=== PATIENT | male | born 1970 | race Caucasian/White ===

== ENCOUNTER 2016-07-25 14:36 | Inpatient (IN) | payer OTHER ==
[~2016-07-25] VITALS: Ht 180.3 cm; Wt 136.1 kg
[2016-07-25] MEDS ORDERED: MOMETASONE FURO45 GM TOP (14:51)
[2016-07-25] MEDS ORDERED: ELOCON30 ML TOP (14:52)
--- NOTE | 2016-07-25 14:52 | ED GENERAL ADULT ---
History of Present Illness General Chief Complaint: Eye Problems Stated Complaint: BIBA, BLURRY VISION Source: patient Exam Limitations: no limitations Vital Signs & Intake/Output Vital Signs & Intake/Output Vital Signs Date Time Temp Pulse Resp B/P Pulse O2 O2 Flow FiO2 Ox Delivery Rate 07/26 0108 99.3 108 18 190/100 96 Room Air 07/26 0000 98.4 90 16 190/100 07/25 2307 108 182/102 07/25 2303 179/101 07/25 2302 98.8 108 20 182/102 96 Room Air 07/25 2143 117 18 190/104 94 Room Air 07/25 1956 98.7 104 18 173/106 95 Room Air 07/25 1620 182/101 07/25 1619 101 20 182/101 95 Room Air 07/25 1532 124 20 210/100 96 Room Air 07/25 1531 210/100 07/25 1442 97.5 124 18 196/110 99 Room Air ED Intake and Output 07/26 0000 07/25 1200 Intake Total 240 Output Total Balance 240 Intake, Oral 240 Allergies Coded Allergies: No Known Allergies (07/25/16) Reconcile Medications Mometasone Furoate 0.1 % CREAM..G. 1 NAHID TOP BID PSORIASIS (Reported) apply to affected area(s) Mometasone Furoate ([place]) 0.1 % SOLUTION 1 NAHID TOP PRN PSORIASIS - SCALP ( Reported) Triage Note: C/O SUDDEN ONSET BLURRED VISION. PT STATES "I FELT DRUNK AND UNSTEADY ALL OF THE SUDDEN" PT'S RIGHT EYE APPEARS TO BE PROTRUDING. STATES COWORKER NOTICED IT AFTER LUNCH. Triage Nurses Notes Reviewed? yes Onset: Abrupt Duration: hour(s): Timing: recent history HPI: 07/25/16 3 PM 45-year-old male presents to the emergency department for blurry vision. According to the patient is in his usual state of health until this afternoon when he felt: "Out of it". He felt lightheaded and dizzy. That approximately one hour ago he developed a sudden onset of blurred vision. He is currently having double vision. The onset of the symptoms were abrupt, the duration was approximately 2-3 hours ago, the severity is significant as his symptoms required him to come to the emergency department for care. He denies headache, nausea, vomiting or other complaints. On physical exam he is awake and alert and oriented 3. He is hypertensive. He is fairly obese. On physical exam his right has mild proptosis. There is obvious anisocoria with the right pupil being sluggishly reactive. He also has restricted range of motion to the right eye both medial gaze. Funduscopic exam is normal. He has not used any drop in the right eye. (HERMELINDO HODGE DO) Past History Travel History Traveled to [place] past 21 day No Medical History Any Pertinent Medical History? see below for history Cardiovascular: hypertension Endocrine: PSORIASIS Surgical History Surgical History: non-contributory Psychosocial History What is your primary language Arabic Tobacco Use: Quit >30 days ago ETOH Use: occasional use Family History Hx Contributory? No (HERMELINDO HODGE DO) Review of Systems Review of Systems Constitutional: Denies: fever. EENTM: Reports: double vision, visual changes. Respiratory: Denies: short of breath. Cardiovascular: Denies: chest pain. GI: Denies: abdominal pain. Genitourinary: Reports: no symptoms. Musculoskeletal: Reports: no symptoms. Skin: Reports: rash (psoriasis). Neurological/Psychological: Denies: headache. Hematologic/Endocrine: Denies: bruising, bleeding. (HERMELINDO HODGE DO) Physical Exam Physical Exam General Appearance: well developed/nourished, alert, awake, anxious, moderate distress Head: atraumatic Ears, Nose, Throat: normal pharynx Neck: normal inspection, supple, full range of motion Respiratory: normal breath sounds, chest non-tender, no respiratory distress Cardiovascular: regular rate/rhythm Peripheral Pulses: 4+ radial (R), 4+ radial (L) Gastrointestinal: non-tender Back: normal range of motion Extremities: normal inspection, normal range of motion, no edema Neurologic/Psych: awake, alert, oriented x 3 Skin: intact, normal color, warm/dry Comments: The patient was placed on a monitor. IV Lopressor was given. He has a right third nerve palsy, and extreme hypertension. I spoke with Dr. Mckeon, and with the on-call neurologist Dr. Mcnulty, MRI of the head and MRA of the brain was obtained, result is pending. The patient was signed out to Dr. Real at 7 PM. He is for telemetry admission. Assuming the MRI MRA are unremarkable. Ophthalmology may see the patient as an outpatient. Core Measures ACS in differential dx? No CVA/TIA Diagnosis: No Severe Sepsis Present: No Septic Shock Present: No (HERMELINDO HODGE DO) Progress Differential Diagnoses I considered the following diagnoses in my evaluation of the patient: [TIA, third nerve palsy, carotid dissection, cerebral aneurysm, diabetic cranial nerve neuropathy,] Plan of Care: Orders Procedure Date/time Status Nothing by Mouth 07/26 B Active EKG 07/26 0330 Active TROPONIN LEVEL 07/26 0300 Active Vital Signs 07/26 010 Active Teach/Educate 07/26 103 Active Nutritional Intake, Monitor 07/26 103 Active Isolation 07/26 103 Active Intake & Output 07/26 103 Active Patient Care Conference 07/26 103 Active Activity/Ambulation 07/26 103 Active Heart Healthy Diet 07/25 D Complete TROPONIN LEVEL 07/25 213 Complete EKG 07/25 213 Active TRC EVALUATION (GEN) 07/25 2105 Active OXYGEN SETUP (GEN) 07/25 2105 Active Pathway - chart 07/25 2105 Active House Staff 07/25 2105 Active Patient Data 07/25 2105 Active Code Status 07/25 2105 Active Patient Data 07/25 205 Active Saline Lock 07/25 2006 Active Misc Message 07/25 2006 Active ED Holding Orders 07/25 2006 Active Vital Signs 07/25 2006 Complete Code Status 07/25 2006 Complete Admit to inpatient 07/25 1918 Active THYROID STIMULATING HORMONE 07/25 1505 Complete LIPID PANEL 07/25 1505 Complete GLYCOSYLATED HGB 07/25 1505 Active FREE T4 07/25 1505 Complete TROPONIN LEVEL 07/25 1455 Complete PROTHROMBIN TIME 07/25 1455 Complete COMPREHENSIVE METABOLIC PANEL 07/25 1455 Complete CBC WITHOUT DIFFERENTIAL 07/25 1455 Complete EKG 07/25 1455 Active TYPE & SCREEN (NOT X-MATCH) 07/25 1455 Complete [id number] DOPPLER 07/25 UNK Active Lab Add-on Test 07/25 UNK Active VTE Mechanical Prophylaxis 07/25 UNK Active Vital Signs 07/25 UNK Active MISTAKE 07/25 UNK Active Telemetry/Special Education Resource Room Teacher 07/25 UNK Active Nursing Misc 07/25 UNK Active Intake & Output 07/25 UNK Active Hemoccult 07/25 UNK Active CIWA 07/25 UNK Active ECHOCARDIOGRAM 07/25 UNK Active Laboratory Tests 07/25/16 2148: Troponin I < 0.01 07/25/16 1505: Hemoglobin A1c Pending 07/25/16 1505: Anion Gap 16, Estimated GFR > 60, BUN/Creatinine Ratio 14.3, Glucose 174 H, Calcium 9.6, Total Bilirubin 0.6, AST 65 H, ALT 140 H, Alkaline Phosphatase 66 , Troponin I < 0.01, Total Protein 7.7, Albumin 4.3, Globulin 3.4, Albumin/ Globulin Ratio 1.3, Triglycerides 89, Cholesterol 196, LDL Cholesterol, Calc 140 H, HDL Cholesterol 39 L, Cholesterol/HDL Ratio 5 H, TSH 1.130, Free T4 1.41, PT 14.2 H, INR 1.36 H, CBC w Diff NO MAN DIFF REQ, RBC 4.92, MCV 92.9, MCH 31.0, RDW 13.3, MPV 8.3, Gran % 85.1 H, Lymphocytes % 10.3 L, Monocytes % 4.4, Eosinophils % 0.1, Basophils % 0.1, Absolute Granulocytes 8.2 H, Absolute Lymphocytes 1.0 L, Absolute Monocytes 0.4, Absolute Eosinophils 0, Absolute Basophils 0, PUBS MCHC 33.4 Initial ED EKG: SINUS TACHYCARDIA (HERMELINDO HODGE DO) Departure Departure Disposition: STILL A PATIENT Condition: Stable Clinical Impression Primary Impression: Hypertensive urgency Secondary Impressions: 3Rd nerve palsy, partial Departure Forms: Customer Survey General Discharge Information Admission Note Spoke With: HARSHAD GILLIAM,[facility] Documentation of Exam: Documentation of any treatments & extenuating circumstances including Concerns Regarding Discharge (functional status, medication knowledge or non-compliance, living conditions, etc.) that warrant an admission rather than observation: [The patient needs telemetry monitoring, IV antihypertensive, neurology consultation] (HERMELINDO HODGE DO) Departure Comments pt admitted prior to sign out to me (dr. real) (SANTIAGO GILLIAM,RACHELL Jones) Critical Care Note Critical Care Note Critical Care Time: 30-74 min (HERMELINDO HODGE DO)
--- NOTE | 2016-07-25 15:03 | NUR ---
PT REPORTS BLURRY VISION FROM RIGHT EYE AND SLIGHTLY CLEARER VISION ON LEFT EYE. PT DESCRIBES "ITS LIKE I HAVE A SPLIT SCREEN OF WHAT I'M LOOKING AT". PT STATES NOT CURRENTLY TREATED FOR HTN. IV PLACED, PT WAITING FOR CT HEAD
[2016-07-25 15:19] LABS: ABSOLUTE BASOPHIL COUNT 0 /CUMM (0.0-0.2); ABSOLUTE EOSINOPHIL COUNT 0 /CUMM (0.0-0.7); ABSOLUTE GRANULOCYTE CT 8.2 /CUMM (1.4-6.5); ABSOLUTE MONOCYTE COUNT 0.4 /CUMM (0.10-0.60); BASOPHIL % 0.1 % (0.0-2.0); EOSINOPHIL % 0.1 % (0-5); HEMATOCRIT 45.6 % (42-52); MEAN CORPUSCULAR HGB CONC 33.4 G/DL (33.0-37.0); MEAN CORPUSCULAR VOLUME 92.9 FL (80.0-94.0); MEAN PLATELET VOLUME 8.3 FL (7.4-10.4); PLATELET COUNT 280 /CUMM (130-400); RBC DISTRIBUTION WIDTH 13.3 % (11.5-14.5); RED BLOOD CELL CT 4.92 /CUMM (4.70-6.10); WHITE BLOOD CELL COUNT 9.6 /CUMM (4.8-10.8)
[2016-07-25 15:22] LABS: PT 14.2 SEC (9.4-12.5)
--- NOTE | 2016-07-25 15:30 | NUR ---
PINK TOP NEEDS TO BE REDRAWN PER LAB
--- NOTE | 2016-07-25 15:33 | NUR ---
ASSUMED CARE OF THIS PATIENT REPORT RECEIVED FROM ROJAS FISHER MANUAL B/P 210/100, HR 124. MEDICATED WITH LOPRESSOR PER ORDERS [facility]E AT BEDSIDE FOR REDRAW OF LAB SPECIMEN WILL CONTINUE TO MONITOR.
[2016-07-25 15:40] LABS: GRANULOCYTE % 85.1 % (42.2-75.2)
--- NOTE | 2016-07-25 17:30 | NUR ---
PT TO/FROM MRI WITH RN ON CHILD DEVELOPMENT ASSISTANT NO CHANGE IN PATIENT STATUS REQUESTING WATER, OK TO GIVE SAME PER DR HODGE
--- NOTE | 2016-07-25 17:46 | MRI REPORT ---
EXAMINATION: MR BRAIN WITHOUT CONTRAST MR ANGIOGRAPHY HEAD WITHOUT CONTRAST CLINICAL INFORMATION: Reported 3rd nerve palsy. COMPARISON: None. TECHNIQUE: Multiplanar, multisequence imaging of the brain was obtained without intravenous administration of contrast. 3-D [id number] MR angiography is performed. Multiple 3-D reformatted images are processed on the technologist workstation. FINDINGS: No diffusion abnormalities are identified to suggest an acute or subacute infarct. The ventricles are normal in size. No mass effect or midline shift is seen. No brain parenchymal signal abnormality is noted. No extra-axial fluid collections are seen. The cerebellum is normal. No pathologic magnetic susceptibility artifact is identified on the gradient refocused acquisition. The craniovertebral junction, marrow signal, and midline structures are normal. The major intracranial flow voids at the level of the [place] are preserved. The dural venous sinus flow voids are maintained. The mastoid air cells and paranasal sinuses are fairly well aerated. There is a significant leftward nasal septal deviation with osseous spurring distorting the left inferior turbinate. A linear low signal focus in the midline ventral pontomedullary junction of the brainstem may be due to a small developmental venous anomaly. There is minimal T2 prolongation surrounding this low signal focus, also demonstrating focal susceptibility artifact. MRA of the [place] demonstrates a normal caliber to the anterior and posterior circulation vasculature. No stenoses or occlusions are seen. No vascular malformation or aneurysms are identified. IMPRESSION: No acute intracranial process. 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 Normal MRA of the head.
--- NOTE | 2016-07-25 19:00 | NUR ---
DR HODGE AT BEDSIDE
--- NOTE | 2016-07-25 19:30 | NUR ---
PLAN IS FOR PATIENT TO BE ADMITTED TO HOSPITAL, AWAITING ORDERS.
--- NOTE | 2016-07-25 21:11 | History & Physical ---
IZABELLA GILLIAM,MARGARET 07/25/169: General Information and HPI MD Statement: I have seen and personally examined TRISHA ROGERS and documented this H&P. The patient is a 45 year old M who presented with a patient stated chief complaint of double vision. Source of Information: patient Exam Limitations: no limitations History of Present Illness: This is a 45-year-old obese male with a 10 year history of hypertension but not on medication and not following with any PCP due to patient's choice, moderate psoriasis, presents to [facility] ED with complaints of sudden onset of double vision. Patient states that today around 1 PM while sitting at work working on his computer he suddenly tarted to experience double vision. Patient reports that his coworkers noticed that his eyes looked "abnormal". Patient reports that his double vision episode was persistent and did not resolve and was encouraged to come to the ED by his coworkers. At the ED patient was found to have elevated BP with systolic readings up to 210 was also tachycardic. Patient received metoprolol 5 mg IV bolus. Patient does deny any loss of vision, recent eye infection, recent eye trauma, any other focal neurological deficit, chest pain, palpitation, nausea, vomiting, or seizure activity. Regarding social history, patient admits to smoking marijuana almost on a daily basis Allergies/Medications Allergies: Coded Allergies: No Known Allergies (07/25/16) Past History Travel History Traveled to [place] past 21 day No Medical History Endocrine: PSORIASIS Surgical History Surgical History: none Past Family/Social History Psychosocial History ETOH Use: occasional use Review of Systems Review of Systems Constitutional: Denies: chills, diaphoresis, weakness. EENTM: Reports: double vision. Cardiovascular: Denies: chest pain, edema, orthopena, palpitations. Respiratory: Denies: cough, hemoptysis, orthopnea, short of breath. GI: Denies: bloating, diarrhea, distention. Genitourinary: Denies: dysuria, frequency, hematuria. Musculoskeletal: Denies: gout, joint pain, joint swelling, muscle pain. Skin: Reports: rash. Neurological/Psychological: Denies: depressed, numbness, paresthesia. Hematologic/Endocrine: Reports: no symptoms. Immunologic/Allergic: Reports: no symptoms. Exam & Diagnostic Data Last 24 Hrs of Vital Signs/I&O Vital Signs Date Time Temp Pulse Resp B/P Pulse O2 O2 Flow FiO2 Ox Delivery Rate 07/26 0400 98.6 90 20 158/98 07/26 0400 88 158/98 07/26 0310 90 184/100 07/26 0300 90 184/100 07/26 0108 99.3 108 18 190/100 96 Room Air 07/26 0000 98.4 90 16 190/100 07/25 2307 108 182/102 07/25 2303 179/101 07/25 2302 98.8 108 20 182/102 96 Room Air 07/25 2143 117 18 190/104 94 Room Air 07/25 1956 98.7 104 18 173/106 95 Room Air Intake & Output 07/26 0800 07/26 0000 Intake Total 240 240 Output Total Balance 240 240 Intake, Oral 240 240 Patient 136.078 kg Weight Physical Exam General Appearance Alert, Oriented X3, Cooperative Skin psoritic rash noted on elbows and arms bilaterally HEENT Atraumatic, Mucous Membr. moist/pink, upward gaze and abduction of right eye is compromised, patient having a done in RIGHT eye finding. Mild proptosis noted so on the right eye. Left eye unremarkable for any abnormality, funduscopic exam unremarkable for any acute pathology Neck Supple, No JVD, +2 Carotid Pulse wo Bruit Lymphatic Cervical nl Cardiovascular Regular Rate, Normal S1, Normal S2, No Murmurs Lungs Clear to Auscultation, Normal Air Movement Abdomen Normal Bowel Sounds, Soft, No Tenderness, No Hepatospenomegaly Neurological Normal Gait, Normal Speech, Strength at 5/5 X4 Ext, Normal Tone, Sensation Intact, Cranial Nerves 3-12 NL, Reflexes 2+ Extremities No Clubbing, No Cyanosis, No Edema, Normal Pulses, No Tenderness/ Swelling Last 24 Hrs of Labs/Michael: Laboratory Tests 07/26/16 0620: Total Bilirubin 0.7, Direct Bilirubin 0.4, AST 52, ALT 122 H, Alkaline Phosphatase 52, Total Protein 6.5, Albumin 3.6 07/26/16 0310: Troponin I < 0.01 07/25/162147: Troponin I < 0.01 Assessment/Plan Assessment: This a 45-year-old obese male with a history of untreated hypertension and not being followed by any PCP presents with complaints of blurred vision in the setting of elevated blood pressure. Patient presentation of blurred vision with physical findings that are consistent with third nerve palsy which is normally caused by either congenital versus acquired. Since this is new onset, possible etiology for patient's acquired nerve palsy most likely is from his uncontrolled hypertension as he presented with elevated BP. Brainstem CVA is always a concern in a patient with elevated BP and presenting with vision changes, however MRA was unremarkable for any stroke findings. Other possible etiologies include autoimmune (he does have a history of moderate psoriasis at increased risk of having other autoimmune disease), considering patient's obesity, diabetes etiology must be excluded even though patient does not have any symptoms such as polyuria or polydipsia. Elevated BP on presentation is secondary to untreated hypertension which patient has had for a long time.. Initially, The was a concern for alcohol withdrawal as a possible cause for elevated blood pressure due to patient's admission of occasional binge drink. However, patient did clarify that his last drink was about 6-7 days ago, therefore , withdrawal most likely is not the cause, Patient lifestyle of not having a healthy diet and decreased exercise, couple with social history of smoking marijuana on almost daily basis , obviously precipitates and increases risk of high blood pressure. The fact that his elevated blood pressure with BP systolic readings of 200 and possible organ damage (third nerve palsy) makes these presentation a hypertensive emergency and will need aggressive BP lowering. Problems #Hypertensive emergency #Third nerve palsy #Transaminitis Plan * lunchroom monitor * Rule out ACS * Echocardiogram * Labetalol 100 mg twice a day; increase as needed to control blood pressure; goal is to have diastolic blood pressure<110 within 2-6 hours. * Eyepatch for the right eye * Neurology consult * Cardiology consult * CIWA protocol * Lifestyle modification counseling * Will trend LFTs regarding transaminitis in my consider right upper quadrant ultrasound if elevated As Ranked By This Provider Problem List: 1. 3Rd nerve palsy, partial Core Measures/Miscellaneous Acute Coronary Syndrome ACS Diagnosis: No Cerebrovascular Accident CVA/TIA Diagnosis: No Congestive Heart Failure CHF Diagnosis: No Venous Thromboembolism VTE Risk Factors: Acute medical illness VTE Prophylaxis Ordered Inpt: Pharm- Lovenox No Mech VTE prophylaxis d/t: No contraindications No VTE Pharm Prophylaxis d/t: No contraindications VTE Diagnosis: No VTE Type: NONE VTE Confirmed by (Test): NONE Severe Sepsis Severe Sepsis Present: No Septic Shock Septic Shock Present: No Miscellaneous Documentation Attending Case Discussed With: ELENA PATRICIA [place] Primary Care Physician: PATIENT HAS NO PRIMARY CARE DR Patient sees these Specialists none Level of Patient Care: Telemetry Consults Needed: Consulting Specialty: Neurology GE VUONG 07/26/16 0258: General Information and HPI Allergies/Medications Home Med list Labetalol HCl 200 MG TABLET 1 TAB PO BID HIGH BLOOD PRESSURE Lisinopril (Prinivil) 10 MG TABLET 1 TAB PO DAILY HIGH BLOOD PRESSURE Mometasone Furoate 0.1 % CREAM..G. 1 NAHID TOP BID PSORIASIS (Reported) apply to affected area(s) Mometasone Furoate (Elocon) 0.1 % SOLUTION 1 NAHID TOP PRN PSORIASIS - SCALP ( Reported) Resident Review Statement Resident Statement: examined this patient, discussed with quality intern, agreed with quality intern, discussed with family, reviewed EMR data (avail), reviewed images Other Findings: This is a 45-year-old gentleman with past medical history significant for psoriasis, hypertension which was diagnosed 10 years ago, took antihypertensives (unsure of the name) for 6 months and stopped for no apparent reason presented to the hospital with chief complaint of double vision. According to the patient, around 1 PM when he was at work he noticed that his seeing everything double. His coworkers told him that his eyes are looking unusual. Patient mentioned that at that time, his head felt heavy, but he did not have any specific headache. Denies droopy eyelids, nausea, vomiting, dizziness, lightheadedness, loss of consciousness, shortness of breath, chest pain, palpitation, abdominal pain, urinary symptoms. The patient denies smoking cigarettes, reports drinking large amounts of alcohol at least 2 times a week(unsure of exactly what and how much), smokes marijuana at least once a day, last time yesterday. Denies any other illicit drug use. Patient does not have a PCP visits urgent care as needed. He has never addressed his blood pressure since 10 years ago. Upon admission to the hospital he was found to be hypertensive to 210/100 which improved to 182/101 after 5 mg IV metoprolol. He was also tachycardic to 124. Vital signs otherwise stable. Pertinent physical exam at the time of admission: Obese, NAD, AAO 3, head atraumatic normocephalic, funduscopy normal,Paralysis of adduction, elevation in the right eye. Pupil is dilated bilaterally however reactive to light and equal. No nystagmus noted in the left eye. Cranial nerves otherwise intact. [id number] intact. Normal reflexes. Strength 5/54. Normal pharynx, neck supple, no JVD, no LAD, no thyromegaly, cardiovascular: Tachycardic, no murmur. Lungs: CTA BL. Abdomen: Normal bowel sounds, Nontender, nondistended, no organomegaly. No lower extremity edema. Pulses normal and symmetrical. The patient passed bedside swallow evaluation. Pertinent lab on admission: CBC unremarkable, AST 65, AST 140, LDL 140, HDL 39, cholesterol 196 MRI head/neck MRA:No acute intracranial process. 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 Normal MRA of the head. Problem list/plan: #3rd nerve palsy;Rt: * Isolated * Pupil sparing(normal internal function) * No intracranial aneurysm noted in MRI; even the aneurysm less likely the cause in pupil sparing complete isolated third nerve palsy. * Patient is hypertensive; has long-standing history of most likely uncontrolled hypertension, for has vascular risk; MRI/MRA above rule out any pathology in cavernous sinus, posterior fossa and meninges. * Provide patch for the affected eye * obese/elevated blood glucose: Check hemoglobin A1c * Neurology and ophthalmology were consulted in the ED. * Consider adding ESR/CRP and workup of giant cell vasculitis. * If third nerve palsy persists, consider lumbar puncture. #Hypertensive urgency: * lunchroom monitor * Rule out ACS * Echocardiogram * Labetalol 100 mg twice a day; increase as needed to control blood pressure; goal is to have diastolic blood pressure<110 within 2-6 hours. 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 * Last episode of excessive drinking July 20, 2016 * Denies history of alcohol withdrawal or hospital admission * Counseled regarding excessive drinking and marijuana use * CIWA scale * Monitor closely * Social consult * Consider Abdominal US * U tox #DVT prophylaxis at all times #Patient is full code HARSHAD GILLIAM, [facility] 07/26/16 0323: Attending MD Review Statement Attending Statement Attending MD Statement: examined this patient, discuss w/resident/PA/TECHNOLOGY COORDINATOR, agreed w/resident/PA/TECHNOLOGY COORDINATOR, discussed with family Attending Assessment/Plan: 45 yo morbidly obese M with h/o untreated HTN (diagnosed 10 yrs ago, stopped meds), psoriasis, and has not seen a physician since, is here for c/o sudden onset double vision and inability to focus, that started around 2 pm while he was at work. His colleagues noticed his eyes looked unusual and sent him to the ER. Denies smoking, consumes alcohol and smokes marijuana. Vitals: tachycardic, 110's, BP 210/100 --> 184/100, sats 96% RA. Exam: Bilateral pupils are mid-dilated and equally RTL. Right eye mild ptosis (very difficult to appreciate), restricted upward gaze (superior rectus) and adduction (medial rectus). Diplopia corrects on right lateral gaze. Horizontal nystagmus +. Normal fundoscopy. Otherwise nonfocal neuro exam. Labs: glucose 174, AST 65, ALT 140, trop neg, EKG: Sinus tachycardia. Head MRI/MRA: no aneurysm or malformation, small developmental venous anomaly midline lower brainstem at pontomedullary junction. 1. Hypertensive crisis with pupil sparing partial right third nerve palsy. The 3rd nerve palsy appears to be ischemic etiology (hypertension/ ?undiagnosed diabetes), no e/o aneurysm (non pupil sparing mostly). Tele admit, neurochecks, check TSH, free T4, lipid panel, HbA1c. Check ESR, CRP, UA and urine tox screen. Provide patch to the right eye. Neuro consult in AM and outpatient Ophthal consult (Dr. Mckeon was called from ER). Treat the underlying process and watch for resolution of palsy. For HTN, gradual reduction to about SBP ~ 180's overnight, initiate Labetalol 100 BID and uptitrate based on BP. Can given PRN IV if needed. Serial EKG and troponin, Echo, Cardio consult. Counseled about alcohol and marijuana use. Weight loss, salt restriction, exercise to be reinforced. 2. Transaminitis in the setting of alcohol use. Trend LFTs, consider RUQ ultrasound. Monitor CIWA, no need for ativan at this point. DVT ppx Lovenox. Full code.
--- NOTE | 2016-07-25 22:09 | NUR ---
PT HAS BED ASSINGMENT 172
--- NOTE | 2016-07-25 22:43 | NUR ---
REPORT ROJAS BARCENAS
--- NOTE | 2016-07-25 23:03 | NUR ---
PT MEDICATED WITH PO LABETALOL PER ORDERS SPOKE W/HOUSE STAFF RONIT SAINI PAGER #[phone] REGARDING PT B/P & TELE NURSE CONCERNS. ADVISED BY MD VUONG TO ADMINISTER THE PO LABETALOL ORDERED AND IT WOULD BE OK TO SEND PATIENT UPSTAIRS, ALSO ADVISED THAT CURRENT GOAL B/P WAS 170'S SYSTOLIC. B/P CHECKED AT THIS TIME: AUTOMATIC CUFF R ARM WAS 179/101 AND MANUAL CUFF L ARM WAS 182/102. ROJAS BARCENAS NOTIFIED OF SAME.
[2016-07-26] VITALS (8 sets, daily range): BP systolic 158–190; BP diastolic 90–110
--- NOTE | 2016-07-26 03:29 | Admission Certification ---
Admission Certification Certification Statement - As attending physician, I certify that at the time of - admission, based on clinical presentation, severity of - symptoms, need for further diagnostic testing and - therapeutic interventions, and risk of adverse outcomes - without in-hospital treatment, in my clinical assessment, - this patient requires an acute hospital stay for a minimum - of two nights or longer. I have also considered psychsocial - factors such as support system, advanced age, financial - issues, cognitive issues, and failed out-patient treatments, - past re-admission history, safety of patient, and lack of - compliance as applicable. Specific rationale supporting this admission is: Hypertensive crisis with pupil sparing partial right third nerve palsy.
--- NOTE | 2016-07-26 10:57 | Cons- Cardiology ---
General Information and HPI Consulting Request Date of Consult: 07/26/16 Requested By: HARSHAD GILLIAM,ANDREW Reason for Consult: Uncontrolled hypertension Source of Information: patient Exam Limitations: no limitations History of Present Illness: The patient is a 45-year-old man was a history of hypertension in the past. He states he was on blood pressure medications about 8 years ago but stopped them because of side effects. He does not have a regular physician and has not been going for regular checkups and does not know what his blood pressure has been doing. Yesterday he developed double vision. He came to the emergency room was found to be severely hypertensive with blood pressure in the 200/110 range. His EKG was unremarkable and his enzymes were negative but he was admitted to telemetry. He was started on labetalol. His blood pressure still elevated today in the 170/100 range. There have been no arrhythmias. He denies any cardiac complaints including chest pain, shortness of breath, palpitations, syncope. Allergies/Medications Allergies: Coded Allergies: No Known Allergies (07/25/16) Home Med List: Mometasone Furoate 0.1 % CREAM..G. 1 NAHID TOP BID PSORIASIS (Reported) apply to affected area(s) Mometasone Furoate (Elocon) 0.1 % SOLUTION 1 NAHID TOP PRN PSORIASIS - SCALP ( Reported) Review of Systems Review of Systems: His only complaint is the present illness of blurry vision and double vision Past History Travel History Traveled to [place] past 21 day No Medical History Blood Transfusion Hx: No Neurological: NONE EENT: NONE Cardiovascular: hypertension Respiratory: NONE Gastrointestinal: NONE Hepatic: NONE Renal: NONE Musculoskeletal: NONE Psychiatric: NONE Endocrine: PSORIASIS Blood Disorders: NONE Cancer(s): NONE [employer]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 Home Services at Home: None Smoking Status: Former Smoker ETOH Use: occasional use Exam & Diagnostic Data Vital Signs and I&O Vital Signs Date Time Temp Pulse Resp B/P Pulse O2 O2 Flow FiO2 Ox Delivery Rate 07/26 1022 100 170/110 07/26 0800 98.0 81 20 170/100 95 Room Air 07/26 0400 98.6 90 20 158/98 07/26 0400 88 158/98 07/26 0310 90 184/100 07/26 0300 90 184/100 07/26 0108 99.3 108 18 190/100 96 Room Air 07/26 0000 98.4 90 16 190/100 07/25 2307 108 182/102 07/25 2303 179/101 07/25 2302 98.8 108 20 182/102 96 Room Air 07/25 2143 117 18 190/104 94 Room Air 07/25 1956 98.7 104 18 173/106 95 Room Air 07/25 1620 182/101 07/25 1619 101 20 182/101 95 Room Air 07/25 1532 124 20 210/100 96 Room Air 07/25 1531 210/100 07/25 1442 97.5 124 18 196/110 99 Room Air Intake & Output 07/26 0807/26 0000 07/25 1600 07/25 0000 Intake Total 240 240 Output Total Balance 240 240 Intake, Oral 240 240 Patient 300 lb Weight Physical Exam: He is obese middle-age male in no acute distress with eye patch on right eye HEENT exam is normal Neck veins not distended Carotids are normal Chest is clear Cardiac exam reveals regular rhythm and no murmurs Abdomen is benign Remedies good pulses no edema Labs/Michael Results: Laboratory Tests 07/26 07/26 07/25 07/25 0620 0310 2148 1505 Chemistry Hemoglobin A1c Pending Total Bilirubin (0.2 - 1.3 mg/dL) 0.7 Direct Bilirubin (< 0.4 mg/dL) 0.4 AST (17 - 59 U/L) 52 ALT (21 - 72 U/L) 122 H Alkaline Phosphatase (< 127 U/L) 52 Troponin I (<0.11 ng/ml) < 0.01 < 0.01 Total Protein (6.3 - 8.2 g/dL) 6.5 Albumin (3.5 - 5.0 g/dL) 3.6 07/25 1505 Chemistry Sodium (137 - 145 mmol/L) 137 Potassium (3.5 - 5.1 mmol/L) 4.2 Chloride (98 - 107 mmol/L) 99 Carbon Dioxide (22 - 30 mmol/L) 22 Anion Gap (5 - 16) 16 BUN (9 - 20 mg/dL) 10 Creatinine (0.7 - 1.2 mg/dL) 0.7 Estimated GFR (>60 ml/min) > 60 BUN/Creatinine Ratio (7 - 25 %) 14.3 Glucose (65 - 99 mg/dL) 174 H Calcium (8.4 - 10.2 mg/dL) 9.6 Total Bilirubin (0.2 - 1.3 mg/dL) 0.6 AST (17 - 59 U/L) 65 H ALT (21 - 72 U/L) 140 H Alkaline Phosphatase (< 127 U/L) 66 Troponin I (<0.11 ng/ml) < 0.01 Total Protein (6.3 - 8.2 g/dL) 7.7 Albumin (3.5 - 5.0 g/dL) 4.3 Globulin (1.9 - 4.2 gm/dL) 3.4 Albumin/Globulin Ratio (1.1 - 2.2 %) 1.3 Triglycerides (<150 mg/dL) 89 Cholesterol (< 200 MG/DL) 196 LDL Cholesterol, Calc (65 - 129 mg/dL) 140 H HDL Cholesterol (40 - 60 mg/dL) 39 L Cholesterol/HDL Ratio (0.00 - 4.88 %) 5 H TSH (0.270 - 4.200 uIU/mL) 1.130 Free T4 (0.64 - 1.79 ng/dL) 1.41 Coagulation PT (9.4 - 12.5 SEC) 14.2 H INR (0.90 - 1.17) 1.36 H Hematology CBC w Diff NO MAN DIFF REQ WBC (4.8 - 10.8 /CUMM) 9.6 RBC (4.70 - 6.10 /CUMM) 4.92 Hgb (14.0 - 18.0 G/DL) 15.3 Hct (42 - 52 %) 45.6 MCV (80.0 - 94.0 FL) 92.9 MCH (27.0 - 31.0 PG) 31.0 RDW (11.5 - 14.5 %) 13.3 Plt Count (130 - 400 /CUMM) 280 MPV (7.4 - 10.4 FL) 8.3 Gran % (42.2 - 75.2 %) 85.1 H Lymphocytes % (20.5 - 51.1 %) 10.3 L Monocytes % (1.7 - 9.3 %) 4.4 Eosinophils % (0 - 5 %) 0.1 Basophils % (0.0 - 2.0 %) 0.1 Absolute Granulocytes (1.4 - 6.5 /CUMM) 8.2 H Absolute Lymphocytes (1.2 - 3.4 /CUMM) 1.0 L Absolute Monocytes (0.10 - 0.60 /CUMM) 0.4 Absolute Eosinophils (0.0 - 0.7 /CUMM) 0 Absolute Basophils (0.0 - 0.2 /CUMM) 0 PUBS MCHC (33.0 - 37.0 G/DL) 33.4 Diagnostic Data EKG Results EKG on admission showed sinus tachycardia rate 123 with high QRS voltage. Repeat EKG this morning showed sinus rhythm rate of 90 and was unremarkable CXR Results Chest x-ray not done Other Results MRI of the brain was negative Assessment/Plan Assessment/Plan presents with uncontrolled hypertension and blurry vision/diplopia. He may have had a small stroke although the MRI is negative. His blood pressure remains somewhat elevated. There is no evidence of myocardial damage etc. although he probably has LVH based on his electrocardiogram. I recommend an echocardiogram, which has been ordered. I recommend adding an NOÉ inhibitor to his regimen. We will start him on lisinopril 10 mg daily. I also recommend increasing labetalol to 200 mg twice daily. A neurologic consultation has been requested. If there are no arrhythmias etc. telemetry can be discontinued tomorrow. Consult Acknowledgment - Thank you for your consult request.
--- NOTE | 2016-07-26 14:42 | PN- Att Addend ---
Attending Addendum Attending Brief Note 45M PMH poolry controlled HTN admitted for HTN crisis with left third nerve palsy. Symptoms and BP improved overnight after starting Labetalol. Currently asymptomatic except for blurry vision. BP improved, labs reviewed. Laboratory Tests 07/26/16 0620: Total Bilirubin 0.7, Direct Bilirubin 0.4, AST 52, ALT 122 H, Alkaline Phosphatase 52, Total Protein 6.5, Albumin 3.6 07/26/16 0310: Troponin I < 0.01 07/25/16 2148: Troponin I < 0.01 07/25/16 1505: Hemoglobin A1c Pending 07/25/16 1505: Anion Gap 16, Estimated GFR > 60, BUN/Creatinine Ratio 14.3, Glucose 174 H, Calcium 9.6, Total Bilirubin 0.6, AST 65 H, ALT 140 H, Alkaline Phosphatase 66 , Troponin I < 0.01, Total Protein 7.7, Albumin 4.3, Globulin 3.4, Albumin/ Globulin Ratio 1.3, Triglycerides 89, Cholesterol 196, LDL Cholesterol, Calc 140 H, HDL Cholesterol 39 L, Cholesterol/HDL Ratio 5 H, TSH 1.130, Free T4 1.41, PT 14.2 H, INR 1.36 H, CBC w Diff NO MAN DIFF REQ, RBC 4.92, MCV 92.9, MCH 31.0, RDW 13.3, MPV 8.3, Gran % 85.1 H, Lymphocytes % 10.3 L, Monocytes % 4.4, Eosinophils % 0.1, Basophils % 0.1, Absolute Granulocytes 8.2 H, Absolute Lymphocytes 1.0 L, Absolute Monocytes 0.4, Absolute Eosinophils 0, Absolute Basophils 0, PUBS MCHC 33.4 Vital Signs Date Time Temp Pulse Resp B/P Pulse O2 O2 Flow FiO2 Ox Delivery Rate 07/26 1255 Room Air 07/26 1200 95 162/100 07/26 1022 100 170/110 07/26 0800 98.0 81 20 170/100 95 Room Air Intake & Output 07/26 1600 Intake Total 820 Output Total Balance 820 Intake, Oral 820 Plan - Continue on telemetry - Follow cardiology recommendations - Continue Labetalol for now, may increase tomorrow - May give Labetalol IV push if acutely hypertensive - Monitor renal function - Contineu home medications - DVT PPx
--- NOTE | 2016-07-26 15:54 | Cons- Neurology ---
General Information and HPI Consulting Request Date of Consult: 07/26/16 Requested By: HARSHAD GILLIAM,ANDREW Reason for Consult: New double vision Source of Information: patient, old records Exam Limitations: no limitations History of Present Illness: This is a 45 year old obese man who does not see a PCP regularly, who presented due to sudden development of double vision while at work a couple of days ago. It was during lunch at work, when he took a short nap, and when he awoke he was seeing double especially on looking to the left. The double images were stacked rather than side by side. He notes that he could correct it by tilting hte head to down and to the right. However, since the double vision is disturbing he had elected to wear a patch. Denies any other focal symptom. Admits to some blurry vision but no headache. He was found to have very high BP on admission. An MRI brain was done but did not reveal any abnormality in the midbrain or along the path of the fourth nerve. Allergies/Medications Allergies: Coded Allergies: No Known Allergies (07/25/16) Home Med List: Mometasone Furoate 0.1 % CREAM..G. 1 NAHID TOP BID PSORIASIS (Reported) apply to affected area(s) Mometasone Furoate (Elocon) 0.1 % SOLUTION 1 NAHID TOP PRN PSORIASIS - SCALP ( Reported) Current Medications: Current Medications Sig/Mady Start time Last Medication Dose Route Stop Time Status Admin Enoxaparin Sodium 40 MG DAILY 07/26 1000 AC 07/26 SC 1022 Labetalol HCl 100 MG ONCE ONE 07/26 0315 DC 07/26 PO 07/26 0316 0310 Labetalol HCl 100 MG BID 07/25 2300 AC 07/26 PO 1022 Review of Systems Review of Systems: Otherwise negative to the ten point complete review of systems. 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 Home Services at Home: None Smoking Status: Former Smoker ETOH Use: occasional use Exam & Diagnostic Data Vital Signs and I&O Vital Signs Date Time Temp Pulse Resp B/P Pulse O2 O2 Flow FiO2 Ox Delivery Rate 07/26 1255 Room Air 07/26 1200 95 162/100 07/26 1022 100 170/110 07/26 0800 98.0 81 20 170/100 95 Room Air 07/26 0400 98.6 90 20 158/98 07/26 0400 88 158/98 07/26 0310 90 184/100 07/26 0300 90 184/100 07/26 0108 99.3 108 18 190/100 96 Room Air 07/26 0000 98.4 90 16 190/100 07/25 2307 108 182/102 07/25 2303 179/101 07/25 2302 98.8 108 20 182/102 96 Room Air 07/25 2143 117 18 190/104 94 Room Air 07/25 1956 98.7 104 18 173/106 95 Room Air 07/25 1620 182/101 07/25 1619 101 20 182/101 95 Room Air Intake & Output 07/26 1600 07/26 0800 07/26 0000 Intake Total 820 240 240 Output Total Balance 820 240 240 Intake, Oral 820 240 240 Patient 300 lb Weight Physical Exam: Obese. Alert and oriented x 3. Fluent and conversant. Good attention and concentration. Good short term memory and fund of knowledge. S1 and S2 are normal. RRR. Pulses normal. Has trouble adducting right eye down towards nasal side, prominent double vision when looking down to left. VICKY, no nystagmus, face symmetric, V1-V3 sensation is normal, Tongue is midline, uvular raises equally in midline. TPZ and SCM strong. Hearing normal. Strength 5/5 throughout, no drift. Reflexes symmetric with down going toes. FNF normal. VF full to confrontation. Gait steady. Sensory exam including vibration intact. Last 48 Hours of Lab Results: Laboratory Tests 07/26 07/26 07/26 1410 0620 0310 Chemistry Total Bilirubin (0.2 - 1.3 mg/dL) 0.7 Direct Bilirubin (< 0.4 mg/dL) 0.4 AST (17 - 59 U/L) 52 ALT (21 - 72 U/L) 122 H Alkaline Phosphatase (< 127 U/L) 52 Troponin I (<0.11 ng/ml) < 0.01 Total Protein (6.3 - 8.2 g/dL) 6.5 Albumin (3.5 - 5.0 g/dL) 3.6 Toxicology Urine Opiates Screen (>2000 NG/ML) < 100.00 Methadone Screen (>300 NG/ML) < 40 Barbiturate Screen (>200 NG/ML) < 60 Ur Phencyclidine Scrn (>25 NG/ML) < 6.00 Amphetamines Screen (>1000 NG/ML) < 100 U Benzodiazepines Scrn (>200 NG/ML) < 85 Urine Cocaine Screen (>300 NG/ML) < 50 Urine Cannabis Screen (>50 NG/ML) > 80.00 H Urines Urine Color (YEL,AMB,STR) YEL Urine Clarity (CLEAR) CLEAR Urine pH (5.0 - 8.0) 7.5 Ur Specific [place] (1.001 - 1.035) 1.015 Urine Protein (NEG,<30 MG/DL) NEG Urine Ketones (NEG) NEG Urine Nitrite (NEG) NEG Urine Bilirubin (NEG) NEG Urine Urobilinogen (0.1 - 1.0 EU/dl) 0.2 Ur Leukocyte Esterase (NEG) NEG Ur Microscopic EXAM NOT REQUIRED Urine Hemoglobin (NEG) NEG Urine Glucose (N MG/DL) NEG 07/25 07/25 07/25 2148 1505 1505 Chemistry Sodium (137 - 145 mmol/L) 137 Potassium (3.5 - 5.1 mmol/L) 4.2 Chloride (98 - 107 mmol/L) 99 Carbon Dioxide (22 - 30 mmol/L) 22 Anion Gap (5 - 16) 16 BUN (9 - 20 mg/dL) 10 Creatinine (0.7 - 1.2 mg/dL) 0.7 Estimated GFR (>60 ml/min) > 60 BUN/Creatinine Ratio (7 - 25 %) 14.3 Glucose (65 - 99 mg/dL) 174 H Hemoglobin A1c Pending Calcium (8.4 - 10.2 mg/dL) 9.6 Total Bilirubin (0.2 - 1.3 mg/dL) 0.6 AST (17 - 59 U/L) 65 H ALT (21 - 72 U/L) 140 H Alkaline Phosphatase (< 127 U/L) 66 Troponin I (<0.11 ng/ml) < 0.01 < 0.01 Total Protein (6.3 - 8.2 g/dL) 7.7 Albumin (3.5 - 5.0 g/dL) 4.3 Globulin (1.9 - 4.2 gm/dL) 3.4 Albumin/Globulin Ratio (1.1 - 2.2 %) 1.3 Triglycerides (<150 mg/dL) 89 Cholesterol (< 200 MG/DL) 196 LDL Cholesterol, Calc (65 - 129 mg/dL) 140 H HDL Cholesterol (40 - 60 mg/dL) 39 L Cholesterol/HDL Ratio (0.00 - 4.88 %) 5 H TSH (0.270 - 4.200 uIU/mL) 1.130 Free T4 (0.64 - 1.79 ng/dL) 1.41 Coagulation PT (9.4 - 12.5 SEC) 14.2 H INR (0.90 - 1.17) 1.36 H Hematology CBC w Diff NO MAN DIFF REQ WBC (4.8 - 10.8 /CUMM) 9.6 RBC (4.70 - 6.10 /CUMM) 4.92 Hgb (14.0 - 18.0 G/DL) 15.3 Hct (42 - 52 %) 45.6 MCV (80.0 - 94.0 FL) 92.9 MCH (27.0 - 31.0 PG) 31.0 RDW (11.5 - 14.5 %) 13.3 Plt Count (130 - 400 /CUMM) 280 MPV (7.4 - 10.4 FL) 8.3 Gran % (42.2 - 75.2 %) 85.1 H Lymphocytes % (20.5 - 51.1 %) 10.3 L Monocytes % (1.7 - 9.3 %) 4.4 Eosinophils % (0 - 5 %) 0.1 Basophils % (0.0 - 2.0 %) 0.1 Absolute Granulocytes (1.4 - 6.5 /CUMM) 8.2 H Absolute Lymphocytes (1.2 - 3.4 /CUMM) 1.0 L Absolute Monocytes (0.10 - 0.60 /CUMM) 0.4 Absolute Eosinophils (0.0 - 0.7 /CUMM) 0 Absolute Basophils (0.0 - 0.2 /CUMM) 0 PUBS MCHC (33.0 - 37.0 G/DL) 33.4 Imaging/Other Studies: Normal MRI of the brain outside of a medullary level midline venous anomaly. No stroke, no hemorrhage and no tumor. Assessment/Plan Assessment: 45 year old with new onset TROCHLEAR NERVE PALSY (R) in the setting of hypertension. Likely secondary to hypertension, though no hemorrhage or ischemic infarct where identified. Other causes such as diabetes, Lyme, nutrient deficiencies and automimmune causes should be ruled out. Recommendations: 1. Check Lyme, RPR, B12, homocysteine, ANCA, ESR, FRED, SSa/b. Check Hba1c and lipids. 2. Check CXR to rule out sarcoid related lymphadenopathy. 3. Treat BP aggressvely. Start Lisinopril 10mg PO daily. Ensure patients BP down to at least 140s before discharge. Consult Acknowledgment - Thank you for your consult request.
--- NOTE | 2016-07-26 17:14 | PN- Housestaff ---
Subjective Follow-up For: Hypertensive emergency Left third palsy Complaints: blurry vision, dizziness while walking (we'll be completed inright abd) Review of Systems Constitutional: Denies: malaise, weakness. Cardiovascular: Denies: chest pain, edema, orthopena, palpitations. Respiratory: Denies: cough, hemoptysis, orthopnea, short of breath. Gastrointestinal: Denies: abdominal pain, bloating, diarrhea, distention, bowel incontinence. Genitourinary: Denies: discharge, dysuria, frequency, hematuria. Musculoskeletal: Denies: back pain, gout, joint pain, joint swelling. Neurological/Psychological: Denies: anxiety, ataxia, cognitive dysfunction, confusion, depressed, dementia, headache, tingling, tremors, tonic-clonic seizures, weakness. Objective Last 24 Hrs of Vital Signs/I&O Vital Signs Date Time Temp Pulse Resp B/P Pulse O2 O2 Flow FiO2 Ox Delivery Rate 07/26 1705 97.7 89 16 164/110 95 Room Air 07/26 1255 Room Air 07/26 1200 95 162/100 07/26 1022 100 170/110 07/26 0800 98.0 81 20 170/100 95 Room Air 07/26 0400 98.6 90 20 158/98 07/26 0400 88 158/98 07/26 0310 90 184/100 07/26 0300 90 184/100 07/26 0108 99.3 108 18 190/100 96 Room Air 07/26 0000 98.4 90 16 190/100 07/25 2307 108 182/102 07/25 2303 179/101 07/25 2302 98.8 108 20 182/102 96 Room Air 07/25 2143 117 18 190/104 94 Room Air 07/25 1956 98.7 104 18 173/106 95 Room Air Intake & Output 07/26 1600 07/26 0800 07/26 0000 Intake Total 820 240 240 Output Total Balance 820 240 240 Intake, Oral 820 240 240 Patient 136.078 kg Weight Physical Exam General Appearance: Alert, Oriented X3, Cooperative, No Acute Distress Skin: No Rashes, No Breakdown HEENT: Atraumatic, PERRLA, decrease left lateral daviation of eye Neck: Supple, No JVD, No thryomegaly Cardiovascular: Regular Rate, Normal S1, Normal S2 Lungs: Clear to Auscultation, Normal Air Movement Abdomen: Normal Bowel Sounds, Soft, No Tenderness Neurological: Normal Speech, Strength at 5/5 X4 Ext, Normal Tone, Sensation Intact, 3 rd cranial nerve palsy, pupils dilated Extremities: No Clubbing, No Cyanosis, No Edema Assessment/Plan Assessment: This is a 45-year-old obese male with PMH of psoriasis, 10 year history of hypertension not on medication and not following with any PCP due to patient's choice, presents to [place] ED with complaints of sudden onset of double vision. Problem list - Hypertensive crisis leading to 3rd nerve palsy Psoriasis Plan - We will continue telemetry monitoring We will follow neurology and cardiology recommendations We will follow Lyme titer, RPR, vitamin B12, homocysteine, ANCA, ESR, FRED, SSa/B , HbA1c and, lipid profile We'll follow with a chest x-ray to rule out sarcoidosis lymphadenopathy Follow-up echocardiogram Target blood pressure is less than 140 We will increase the dose of labetalol to 200 milligrams twice a day We will add lisinopril 10 milligrams by mouth OD Diet - heart healthy low-salt diet DVT prophylaxis-ALP S CODE STATUS-full code Problem List: 1. 3Rd nerve palsy, partial 2. Hypertensive urgency 3. Psoriasis Pain Ratin Pain Location: none Pain Goal: Remain pain free Pain Plan: mild Tomorrow's Labs & Rationales: Lyme, RPR, B12, homocysteine, ANCA, ESR, FRED, SSa/b. Check Hba1c and lipids DVT/Prophylaxis: mechanical
--- NOTE | 2016-07-26 18:01 | ULTRASOUND REPORT ---
EXAMINATION: BILATERAL DUPLEX CAROTID ULTRASOUND CLINICAL INDICATION: Hypertensive emergency. COMPARISON: MRI of the head done on 07/25/2016. TECHNIQUE: Real-time ultrasound and Doppler techniques (integrating B-mode 2D vascular images, Doppler spectral analysis and color flow Doppler imaging) were utilized to interrogate the extracranial carotid and vertebral arteries bilaterally. . FINDINGS: On the RIGHT, there is no significant plaque present at the carotid bifurcation. In the distal CCA, the peak systolic velocity is 55 cm/sec. In the proximal ICA, the peak systolic velocity is 65 cm/sec, and the end diastolic velocity is 23.5 cm/sec. The ICA/CCA ratio is 1.1. On the LEFT, there is no significant plaque present at the carotid bifurcation. In the distal CCA, the peak systolic velocity is 85 cm/sec. In the proximal ICA, the peak systolic velocity is 85 cm/sec, and the end diastolic velocity is 21.1 cm/sec. The ICA/CCA ratio is 1.0. The vertebral arteries show antegrade flow with normal waveforms bilaterally. IMPRESSION: 1. The right internal carotid artery shows no hemodynamically significant stenosis. 2. The left internal carotid artery shows no hemodynamically significant stenosis. 3.Both vertebral arteries are patent and show antegrade flow. 4. Essentially unremarkable carotid duplex ultrasound.
[2016-07-27 00:42] VITALS: BP 164/96
[2016-07-27 07:57] VITALS: BP 134/90
--- NOTE | 2016-07-27 10:57 | RADIOLOGY REPORT ---
EXAMINATION: XR CHEST CLINICAL INFORMATION: Hypertensive emergency COMPARISON: None. TECHNIQUE: Frontal and lateral films of the chest FINDINGS: Heart size is normal. Pulmonary vascularity is normal. The lungs are normally expanded and grossly clear. No focal consolidation or atelectasis is seen. There is no pneumothorax or pleural effusion. No acute bony abnormality IMPRESSION: Chest x-ray is within normal limits.
--- NOTE | 2016-07-27 12:20 | PN- Cardiology ---
Subjective Subjective: The patient is doing well. His blood pressure has improved to the 140/90 range. He is on labetalol and lisinopril. Neurology has seen him and suggested some additional testing which has been ordered. Some of this testing will not be available until after discharge. He is pending an echocardiogram. Objective Vital Signs and I&Os Vital Signs Date Time Temp Pulse Resp B/P Pulse O2 O2 Flow FiO2 Ox Delivery Rate 07/27 0953 74 134/90 07/27 0952 74 134/90 07/27 0757 97.9 74 18 134/90 96 Room Air 07/27 0042 98.0 82 18 164/96 94 Room Air 07/26 2213 74 162/92 07/26 2049 111 166/90 07/26 2044 166/90 07/26 1705 97.7 89 16 164/110 95 Room Air 07/26 1255 Room Air Intake & Output 07/27 1600 07/27 0800 07/27 0000 07/26 1600 07/26 0800 07/26 0000 Intake Total 120 820 240 240 Output Total Balance 120 820 240 240 Intake, Oral 120 820 240 240 Patient 300 lb Weight Physical Exam: On physical examination there are no specific abnormalities. The exam is unchanged from yesterday except that his blood pressure is lower. Current Medications: Current Medications Sig/Mady Start time Last Medication Dose Route Stop Time Status Admin Enoxaparin Sodium 40 MG DAILY 07/26 1000 AC 07/27 SC 0952 Labetalol HCl 200 MG BID 07/26 2200 07/27 PO 0953 Labetalol HCl 100 MG BID 07/25 2300 DC 07/26 PO 1022 Lisinopril 10 MG DAILY 07/26 1731 07/27 PO 0952 Patient Medication 1 UNIT ONE NR 07/26 1745 [facility] ED 07/26 1800 Patient Medication 1 UNIT ONE NR 07/26 1745 [facility] ED 07/26 1800 Results Last 48 Hrs of Labs/Mics: Laboratory Tests 07/27/16 0610: Hemoglobin A1c Pending, FRED Titer Pending, Anti-Nuclear Antibody Pending 07/27/16 0610: Anion Gap 13, Estimated GFR > 60, BUN/Creatinine Ratio 11.1, Vitamin B12 909, ESR Westergren 28 H, ANCA Pending, RPR Titer/FTA Pending, Lyme Disease Antibody Pending 07/26/16 1410: Urine Opiates Screen < 100.00, Methadone Screen < 40, Barbiturate Screen < 60, Ur Phencyclidine Scrn < 6.00, Amphetamines Screen < 100, U Benzodiazepines Scrn < 85, Urine Cocaine Screen < 50, Urine Cannabis Screen > 80.00 H, Urine Color YEL, Urine Clarity CLEAR, Urine pH 7.5, Ur Specific [place] 1.015, Urine Protein NEG, Urine Ketones NEG, Urine Nitrite NEG, Urine Bilirubin NEG, Urine Urobilinogen 0.2, Ur Leukocyte Esterase NEG, Ur Microscopic EXAM NOT REQUIRED, Urine Hemoglobin NEG, Urine Glucose NEG 07/26/16 0620: Total Bilirubin 0.7, Direct Bilirubin 0.4, AST 52, ALT 122 H, Alkaline Phosphatase 52, Total Protein 6.5, Albumin 3.6 07/26/16 0310: Troponin I < 0.01 07/25/16 2148: Troponin I < 0.01 07/25/16 1505: Hemoglobin A1c Pending 07/25/16 1505: Anion Gap 16, Estimated GFR > 60, BUN/Creatinine Ratio 14.3, Glucose 174 H, Calcium 9.6, Total Bilirubin 0.6, AST 65 H, ALT 140 H, Alkaline Phosphatase 66 , Troponin I < 0.01, Total Protein 7.7, Albumin 4.3, Globulin 3.4, Albumin/ Globulin Ratio 1.3, Triglycerides 89, Cholesterol 196, LDL Cholesterol, Calc 140 H, HDL Cholesterol 39 L, Cholesterol/HDL Ratio 5 H, TSH 1.130, Free T4 1.41, PT 14.2 H, INR 1.36 H, CBC w Diff NO MAN DIFF REQ, RBC 4.92, MCV 92.9, MCH 31.0, RDW 13.3, MPV 8.3, Gran % 85.1 H, Lymphocytes % 10.3 L, Monocytes % 4.4, Eosinophils % 0.1, Basophils % 0.1, Absolute Granulocytes 8.2 H, Absolute Lymphocytes 1.0 L, Absolute Monocytes 0.4, Absolute Eosinophils 0, Absolute Basophils 0, PUBS MCHC 33.4 Assessment/Plan Assessment/Plan The patient can be discharged on his current regimen. I will review his echocardiogram when done. I will review his other lab work when it is all completed. He can follow-up in my office for his blood pressure. 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 Continue telemetry? Not applicable
[2016-07-27] MEDS ORDERED: PRINIVIL10 M1 PO (14:58)
[2016-07-27] MEDS ORDERED: LABETALOL HCL200 M1 PO (14:58)
--- NOTE | 2016-07-27 15:06 | Patient Discharge Instructions ---
Discharge Instructions General Discharge Information Special Instructions: please follow up with PCP within one week after discharge Please follow up with Dr. FONTANA one week cardiology after discharge Please follow up with neuro leather grainer for double vision please follow up with Dr. KC neurology after discharge Acute Coronary Syndrome Inclusion Criteria At DC or during hospital stay patient has or had the following: ACS DIAGNOSIS No Discharge Core Measures Meds if any: Prescribed or Continued at Discharge Meds if any: NOT Prescribed or Continued at Discharge Congestive Heart Failure Inclusion Criteria At DC or during hospital stay patient has or had the following: CHF DIAGNOSIS No Discharge Core Measures Meds if any: Prescribed or Continued at Discharge Meds if any: NOT Prescribed or Continued at Discharge Cerebrovascular accident Inclusion Criteria At DC or during hospital stay patient has or had the following: CVA/TIA Diagnosis No Discharge Core Measures Meds if any: Prescribed or Continued at Discharge Meds if any: NOT Prescribed or Continued at Discharge Venous thromboembolism Inclusion Criteria VTE Diagnosis No VTE Type NONE VTE Confirmed by (Test) NONE Discharge Core Measures - Per Current guidelines, there needs to be overlap - treatment for the first 5 days of Warfarin therapy. - If discharged on Warfarin prior to 5 days of - overlap therapy, the patient will need to be - assessed for post discharge needs including - *Post discharge parental anticoagulation - *Warfarin and/or parental anticoagulation education - *Follow up date to check INR post discharge At least 5 days overlap therapy as Inpatient Yes Meds if any: Prescribed or Continued at Discharge Note: Overlap Therapy is Warfarin and Anticoagulant Meds if any: NOT Prescribed or Continued at Discharge
[2016-07-27 16:00] VITALS: BP 120/80
--- NOTE | 2016-07-27 17:20 | ECHOCARDIOGRAM REPORT ---
TRISHA ROGERS Age: 45 : 1970 Gender: M Exam Date: 07/27/2016 13:54 Exam Location: 1 [address] Ht (in): 71 Wt (lb): 300 BSA: 2.67 BP: 162 / 92 Ordering Physician: MADISON VUONG, Referring Physician: Stu Jovel MD Chief, SoC Technologist: Felix Gonzales [facility] Room Number: 172 Indications: HYPERTENSION Rhythm: Sinus Technical Quality: Good FINDINGS Left Ventricle Normal size left ventricle. Moderate concentric left ventricular hypertrophy. Normal left ventricular ejection fraction visually estimated at >65 %. No obvious regional wall motion abnormalities. Normal left ventricular diastolic filling pattern for age. Right Ventricle The right ventricle is normal in size and function. Right Atrium The right atrium is normal in size. Left Atrium The left atrium is normal in size. The interatrial septum is intact. Mitral Valve The mitral valve is normal in structure and function. There is trace mitral regurgitation. Aortic Valve Structurally normal aortic valve without significant sclerosis or stenosis. There is no aortic regurgitation. Tricuspid Valve The tricuspid valve is normal in structure and function. There is trace tricuspid regurgitation. Unable to estimate the right ventricular systolic pressure. Pulmonic Valve Structurally normal pulmonic valve. There is trace pulmonic regurgitation. Pericardium Normal pericardium without effusion. No pleural effusion. Great Vessels Normal aortic root dimension. The aortic arch and great vessels are well seen and are normal. CONCLUSIONS Moderate concentric left ventricular hypertrophy. Normal left ventricular ejection fraction visually estimated at >65 Normal left ventricular diastolic filling pattern for age. No significant valve abnormalities. Physiologic valvular regurgitation. Stu Jovel M.D. (Electronically Signed) Final Date: 27 July 2016 17:19 MEASUREMENTS (Male / Female) Normal Values 2D ECHO LV Diastolic Diameter PLAX 3.7 cm 4.2 - 5.9 / 3.9 - 5.3 cm LV Systolic Diameter PLAX 2.9 cm 2.1 - 4.0 cm LV Fractional Shortening PLAX 21.6 % 25 - 46 % LV Ejection Fraction 2D Teich 44.6 % IVS Diastolic Thickness 1.5 cm LVPW Diastolic Thickness 1.2 cm LV Relative Wall Thickness 0.7 RV Internal Dim ED PLAX 3.6 cm 1.9 - 3.8 cm LVOT Diameter 2.1 cm Aortic Root Diameter 3.4 cm LA Systolic Diameter LX 3.6 cm 3.0 - 4.0 / 2.7 - 3.8 cm LV Ejection Fraction MOD BP 61.8 % >= 55 % LV Diastolic Length 4C 9.7 cm 6.9 - 10.3 cm LV Diastolic Area 4C 30.7 cm LV Diastolic Volume MOD 4C 79.0 cm LV Ejection Fraction MOD 4C 62.0 % LV Stroke Volume MOD 4C 49.0 cm LV Systolic Length 4C 7.5 cm LV Systolic Area 4C 16.1 cm LV Systolic Volume MOD 4C 30.0 cm LV Ejection Fraction MOD 2C 59.1 % LV Diastolic Volume 4C AL 82.9 cm 85 - 139 / 69 - 109 cm LV Systolic Volume 4C AL 29.2 cm LV Ejection Fraction 4C AL 64.8 % LV Stroke Volume 4C AL 53.7 cm LV Ejection Fraction 2C AL 66.1 % Ascending Aorta Diameter 2.9 cm DOPPLER AV Peak Velocity 134.0 cm/s AV Peak Gradient 7.2 mmHg AV Mean Velocity 91.2 cm/s AV Mean Gradient 4.0 mmHg AV Velocity Time Integral 22.1 cm LVOT Peak Velocity 97.8 cm/s LVOT Peak Gradient 3.8 mmHg LVOT Mean Velocity 62.3 cm/s LVOT Mean Gradient 2.0 mmHg LVOT Velocity Time Integral 18.6 cm LVOT Stroke Volume 64.4 cm AV Area Cont Eq vti 2.9 cm AV Area Cont Eq pk 2.5 cm MV Peak Velocity 84.0 cm/s MV Peak Gradient 2.8 mmHg MV Mean Velocity 48.6 cm/s MV Mean Gradient 1.0 mmHg Mitral E Point Velocity 50.3 cm/s Mitral A Point Velocity 62.3 cm/s Mitral E to A Ratio 0.8 MV PHT Velocity 60.1 cm/s MV Deceleration Steele 182.0 cm/s MV Pressure Half Time 99.1 ms MV Area PHT 2.2 cm MV Deceleration Time 190.0 ms PV Peak Velocity 95.1 cm/s PV Peak Gradient 3.6 mmHg PV Mean Velocity 63.2 cm/s PV Mean Gradient 2.0 mmHg PV Velocity Time Integral 17.8 cm LV E' Lateral Velocity 9.7 cm/s Mitral E to LV E' Lateral Ratio 5.2 LV E' Septal Velocity 4.5 cm/s Mitral E to LV E' Septal Ratio 11.2
--- NOTE | 2016-07-27 19:23 | PN- Att Addend ---
Attending Addendum Attending Brief Note 45M PMH poolry controlled HTN admitted for HTN crisis with left third nerve palsy. Symptoms and BP improved overnight after starting Labetalol. Currently asymptomatic except for blurry vision. BP improved, labs reviewed. Laboratory Tests 07/27 07/27 0610 0610 Chemistry Sodium (137 - 145 mmol/L) 140 Potassium (3.5 - 5.1 mmol/L) 4.8 Chloride (98 - 107 mmol/L) 97 L Carbon Dioxide (22 - 30 mmol/L) 30 Anion Gap (5 - 16) 13 BUN (9 - 20 mg/dL) 10 Creatinine (0.7 - 1.2 mg/dL) 0.9 Estimated GFR (>60 ml/min) > 60 BUN/Creatinine Ratio (7 - 25 %) 11.1 Hemoglobin A1c Pending Vitamin B12 (239 - 931 pg/mL) 909 Hematology ESR Westergren (0 - 10 MM) 28 H Immunology FRED Titer Pending Anti-Nuclear Antibody Pending ANCA Pending Serology RPR Titer/FTA Pending Lyme Disease Antibody Pending Vital Signs Date Time Temp Pulse Resp B/P Pulse O2 O2 Flow FiO2 Ox Delivery Rate 07/27 1600 98.7 80 20 120/80 95 Room Air 07/27 0953 74 134/90 07/27 0952 74 134/90 07/27 0757 97.9 74 18 134/90 96 Room Air 07/27 0042 98.0 82 18 164/96 94 Room Air 07/26 2213 74 162/92 07/26 2049 111 166/90 07/26 2044 166/90 Intake & Output 07/27 1600 07/27 0800 07/27 0000 Intake Total 800 120 Output Total Balance 800 120 Intake, Oral 800 120 Number 1 Bowel Movements Plan - Stable for discharge - Follow cardiology recommendations - Follow up labs as outpatient
--- NOTE | 2016-09-17 11:44 | Discharge Summary ---
Visit Information Visit Dates Admission Date: 07/25/16 Discharge Date: 07/27/16 Hospital Course Course Attending Physician: YASMIN LADD MD Primary Care Physician: PATIENT HAS NO PRIMARY CARE DR Consulting Request: Consulting Specialty: Neurology Hospital Course: 45-year-old obese male with a 10 year history of hypertension but not on medication and not following with any PCP due to patient's choice, moderate psoriasis, presents to [facility] with complaints of sudden onset of double vision. Hypertensive emergency - Third nerve palsy the secondary to uncontrolled hypertension - At the time of admission, patient was found to be hypertensive with BP of 210/ 100 which improved to 182/101 after 5 mg IV metoprolol. on examination there was paralysis of adduction and elevation of the right eye. Pupil were dilated, equal and reactive to light bilaterally.It was though that he had third nerve palsy secondary to elevated blood pressure.Patient lifestyle of not having a healthy diet and decreased exercise, couple with social history of smoking marijuana on almost daily basis ,precipitated and increases risk of high blood pressure. We did MRI of the brain and MRA of neck showed no acute intracranial process and normal MRA of head, carotid doppler showed no hemodynamically significant stenosis. We took cardiology and neurologist opinion. Maintainability Engineer advised echo which showed LVH with >65% LVEF and advised to start patient on lisinopril 10 mg daily and increasing labetalol to 200 mg twice daily.Neurologist advised to continueantihypertensive medication with target of <140s.Patient responded to medication.We discharged the patient with advised to follow up with neurologist.His BP at the time of discharge was 134/90mm Hg. Complications: third nerve palsy Allergies: Coded Allergies: No Known Allergies (07/25/16) Disposition Summary Disposition Principal Diagnosis: Hypertensive emergency - Third nerve palsy the secondary to uncontrolled hypertension Additional Diagnosis: Psoriasis Chronic alcoholic Discharge Disposition: home or self care Discharge Instructions General Discharge Information Code Status: Full Code Patient's Diet: Heart healthy diet Patient's Activity: As tolerated Follow-Up Instructions/Appts: please follow up with PCP within one week after discharge Please follow up with Dr. FONTANA one week cardiology after discharge Please follow up with neuro slimer for double vision please follow up with Dr. KC neurology after discharge. Medications at Discharge Discharge Medications: Continue taking these medications: Mometasone Furoate (Mometasone Furoate) 0.1 % CREAM..G. 1 Application On the skin TWICE DAILY Instructions: apply to affected area(s) Comments: PER PT Mometasone Furoate (Elocon) 0.1 % SOLUTION 1 Application On the skin as needed for PSORIASIS - SCALP Comments: PER PT Start taking the following new medications: Labetalol HCl (Labetalol HCl) 200 MG TABLET 1 Tablet ORAL TWICE DAILY Qty = 60 No Refills Lisinopril (Prinivil) 10 MG TABLET 1 Tablet ORAL DAILY Qty = 30 No Refills Copies To: DE GILLIAM,SHELDON; ADDI GILLIAM,DAKOTA Macedo Attending MD Review Statement Documenting Attending: WILBERTO GILLIAM,YASMIN
== END 2016-07-27 16:28 | DRG 305 ==
LOC: ERH 14:36 → 1NO 19:18 → ERHI 19:18 → 1NO 23:13
PROVIDERS: Emergency Medicine; ADMIT Student in an Organized Health Care Education/Training Program
DX: I16.9 Hypertensive crisis, unspecified (principal); G58.8 Other specified mononeuropathies; Z87.891 Personal history of nicotine dependence
CPT/HCPCS: 1NP; 70551; 70555; 86021; 86618; 80307; 81003; 82436; 93005; 93010; 93306; 96374; 99291; J1650; Q9957